=== PATIENT | male | born 1965 | race Asian ===

== ENCOUNTER 2023-12-29 05:43 | Day surgery (SDC) | payer BC ==
[~2023-12-29] VITALS: Ht 182.9 cm; Wt 90.6 kg
[2023-12-29] VITALS (14 sets, daily range): BP systolic 92–131; BP diastolic 48–76; PULSE 69–89; TEMP 97.6–98.3
[2023-12-29] MEDS ORDERED: OMEGA-3 1000 MG1 CAP PO (06:17)
[2023-12-29] MEDS ORDERED: PROFE180 MG PO (06:18)
[2023-12-29] MEDS ORDERED: LR 1,000 ML IV ONE (06:45)
[2023-12-29] MEDS ORDERED: EPINEPHrine 1 MG/1 ML Ampule ONE (06:52)
[2023-12-29] MEDS ORDERED: Tranexamic Acid 1,000 MG/10 ML VIAL ONE (06:52)
[2023-12-29] MEDS ORDERED: Midazolam 2 MG/2 ML VIAL ONE (06:52)
[2023-12-29] MEDS ORDERED: NS 10 ML IV ONE (06:52)
[2023-12-29] MEDS ORDERED: Thrombin Human (Recombinant) 5,000 UNITS VIAL TP ONE (07:41)
[2023-12-29] MEDS ORDERED: Gentamicin 80 MG/50 ML IV.SOLN IR ONE (07:41)
[2023-12-29] MEDS ORDERED: Ondansetron 4 MG/2 ML VIAL IV PRN (10:30)
[2023-12-29] MEDS ORDERED: oxyCODONE 5 MG TAB PO PRN ×2 (10:30)
[2023-12-29] MEDS ORDERED: Acetaminophen 500 MG TAB PO PRN (10:30)
[2023-12-29] MEDS ORDERED: Magnes Hydrox (MOM) 80 MG/ML 30 ML CUP PO PRN (10:30)
[2023-12-29] MEDS ORDERED: Naloxone 0.4 MG/ML VIAL IV PRN (10:30)
[2023-12-29] MEDS ORDERED: Mag/Al Hydrox/Simeth Susp 30 ML CUP PO PRN (10:30)
[2023-12-29] MEDS ORDERED: NS 1,000 ML IV SCH (10:30)
[2023-12-29] MEDS ORDERED: Morphine 4 MG/ML VIAL IV PRN (10:30)
[2023-12-29] MEDS ORDERED: Bisacodyl 5 MG TAB PO PRN (10:30)
[2023-12-29] MEDS ORDERED: Acetaminophen 500 MG TAB PO SCH (11:30)
[2023-12-29] MEDS ORDERED: ceFAZolin 2 G in Water For Injection,Sterile 20 ML IV SCH (14:30)
--- NOTE | 2023-12-29 17:38 | NUR ---
THIS NURSE WAS ASSISTING PATIENT TO BATHROOM WHEN PATIENT REPORTED FEELING LIGHT-HEADED. ASSISTED PATIENT TO BED, PATIENT BECAME CLAMMY/PALE IN COLOR. VITAL SIGNS OBTAINED. BP CLOSE TO BASELINE AT 92/55. PATIENT VOMITED TWICE. GOWN CHANGED. VERBAL ORDERS FROM DR. VALENTINE TO ORDER LABS/500ML FLUID BOLUS.
[2023-12-29] MEDS ORDERED: NS 500 ML IV ONE (17:45)
[2023-12-29] MEDS ORDERED: NS 1,000 ML IV ONE (17:45)
--- NOTE | 2023-12-29 17:57 | NUR ---
500ML BOLUS INFUSING. BP CONTINUES TO RUN SOFT AT 93/57. LAB DRAW FOR HGB ORDERED.
--- NOTE | 2023-12-29 18:28 | NUR ---
500ML FLUID BOLUS ALMOST COMPLETE, BP UP TO 102/55. PATIENT ASYMPTOMATIC.
[2023-12-29 18:57] LABS: HEMOGLOBIN 11.8 g/dl (13.5-18.0); MEAN CELL VOLUME 91 fl (80.0-100.0); MEAN CORPUSCULAR HEMOGLOBIN 31 pg (27-31); MEAN CORPUSCULAR HGB CONC 34 g/dl (33.0-37.0); MEAN PLATELET VOLUME 9.8 fl (7.4-10.4); PLATELET COUNT 207 K/mm3 (130-400); RED BLOOD COUNT 3.84 M/mm3 (4.20-5.60); REDCELL DISTRIBUTION WIDTH-CV 12.6 % (11.5-14.5)
[2023-12-29 18:59] LABS: HEMATOCRIT 34.8 % (42.0-52.0)
[2023-12-29 19:28] LABS: CALCIUM 8.7 mg/dL (8.4-10.2); CREATININE, serum 1.07 mg/dL (0.72-1.25); POTASSIUM 3.9 mmol/L (3.5-4.5)
[2023-12-29 20:29] LABS: BAND 15 % (0-10); LYMPHOCYTE 4 % (20.0-51.0); NEUTROPHILS 79 % (42.0-75.2)
[2023-12-29 20:30] LABS: ANISOCYTOSIS 1+; PLATELET ESTIMATE NORMAL (NORMAL)
[2023-12-29] MEDS ORDERED: Celecoxib 200 MG CAP PO SCH (21:00)
[2023-12-29] MEDS ORDERED: Sennosides/Docusate 8.6-50 MG TAB PO SCH (21:00)
[2023-12-29] MEDS ORDERED: Ascorbic Acid 500 MG TAB PO SCH (21:00)
--- NOTE | 2023-12-29 22:00 | NUR ---
PT GIVEN HS MEDS AT THIS TIME. REPORTS HAVING MINIMAL KNEE PAIN. BOTH KNEES WITH DRY DRSG'S. ICE PACKS REPLACED. HAS IVF TO LT WRIST INFUSING WITHOUT PROBLEM. PT BELIEVES TAKING THE OXYCODONE MADE HIM PASS OUT EARLIER. VOIDING PER URINAL.
[2023-12-30] VITALS (7 sets, daily range): BP systolic 97–120; BP diastolic 59–70; PULSE 65–72; TEMP 97.5–97.7
[2023-12-30 05:42] LABS: BASO % 0.1 % (0.0-2.0); GRAN # 6.4 K/mm3 (1.4-6.5); GRAN % 81.2 % (42.2-75.2); HEMOGLOBIN 11.4 g/dl (13.5-18.0); LYMPH # 0.5 K/mm3 (1.2-3.4); LYMPH % 5.8 % (20.0-51.0); MEAN CELL VOLUME 90 fl (80.0-100.0); MEAN CORPUSCULAR HEMOGLOBIN 31 pg (27-31); MEAN CORPUSCULAR HGB CONC 34 g/dl (33.0-37.0); MEAN PLATELET VOLUME 9.8 fl (7.4-10.4); MONO % 12.5 % (1.7-9.3); PLATELET COUNT 218 K/mm3 (130-400); REDCELL DISTRIBUTION WIDTH-CV 12.7 % (11.5-14.5)
[2023-12-30 05:45] LABS: HEMATOCRIT 33.4 % (42.0-52.0)
[2023-12-30 06:01] LABS: CALCIUM 8.4 mg/dL (8.4-10.2); POTASSIUM 4.3 mmol/L (3.5-4.5)
--- NOTE | 2023-12-30 08:33 | NUR ---
RECEIVED BEDSIDE REPORT FROM [employer] RNJANE. PATIENT AWAKE AND RESTING IN BED. BED IN A LOW POSITION. CALL LIGHT WITHIN REACH.
--- NOTE | 2023-12-30 08:36 | NUR ---
HEAD TO TOE ASSESSMENT COMPLETED. PATIENT IS ALERT AND ORIENTED. PUPILS ARE EQUAL AND REACTIVE. HEART SOUNDS REGULAR WITH S1 AND S2 NOTED. LUNG SOUNDS CLEAR BILATERALLY IN UPPER AND LOWER LOBES. BOWEL SOUNDS ACTIVE X4. PATIENT VOIDS INDEPENDENTLY. PULSES PRESENT AND EQUAL BILATERALLY IN UPPER AND LOWER EXTREMITIES. PATIENT REPORTS NO COMPLAINTS OF PAIN THIS MORNING. BILATERAL KNEE DRESSING ARE CDI. MEDICATIONS ADMINISTERED PER EMAR. BED IN A LOW POSITION. CALL LIGHT WITHIN REACH.
[2023-12-30] MEDS ORDERED: Magnes Hydrox (MOM) 80 MG/ML 30 ML CUP PO SCH (09:00)
--- NOTE | 2023-12-30 10:27 | NUR ---
Initial visit; Patient thanked Ct Scan Technologist for looking in on him and offering comfort, encouragement and to keep him in Ct Scan Technologist's prayers. Ct Scan Technologist offered God's blessings for healing.
[2023-12-30] MEDS ORDERED: CEPHALEXIN500 M1 PO (12:25)
[2023-12-30] MEDS ORDERED: ASPI325T6 PO (12:25)
[2023-12-30] MEDS ORDERED: CELEBREX 200MG200 MG PO (12:26)
[2023-12-30] MEDS ORDERED: PERCOCET 325 MG1 TA2 PO (12:26)
--- NOTE | 2023-12-30 13:30 | NUR ---
ALL EDUCATION & DISCHARGE PAPERWORK GONE OVER WITH PATIENT. ENCOURAGED QUESTIONS AND ANSWERED APPROPRIATELY. FOLLOW UP APPOINTMENTS CONFIRMED. IV DISCONTINUED. PATIENT WAITING FOR RIDE.
--- NOTE | 2023-12-30 16:44 | NUR ---
family services worker and SW student met with patient to discuss discharge planning. Patient lives in [place]. Best point of contact is Connie, daughter, P# [phone]. PCP is Dr. Morgan at [facility], [facility]. No issues affording medications. No DPOA-HC, not interested in completing one. Patient has crutches and reports to be independent with ADLS. Patient has friends and family to assist with driving to and from appointments. Patient would like to go home with outpatient pt. Patient would like outpatient pt at [facility]. SW faxed referral and discharge orders to [facility]. Discharge plan: Home with OP PT
== END 2023-12-30 14:30 | disposition home or self-care (01) ==
LOC: SDCO 05:43 → SURG 11:40 → SDCO 12-30 14:30
PROVIDERS: Internal Medicine; Physician Assistant
DX: M17.0 Bilateral primary osteoarthritis of knee (principal); G89.18 Other acute postprocedural pain
CPT/HCPCS: OP; A4314; A9284; C1713; C1776; J0171; J0665; J0690; J1580; J2250; J2704; J2795; J7030; J7040; J7120